=== PATIENT | female | born 1945 | race Hispanic/Latino ===

== ENCOUNTER 2017-09-18 12:04 | Outpatient (CLI) | payer MEDICARE ==
--- NOTE | 2017-09-18 16:38 | Mammography Report ---
BILATERAL DIGITAL SCREENING MAMMOGRAM with CAD: 09/18/17 12:04:00 CLINICAL: Routine screening. COMPARISON: 06/22/16 and 03/12/14 FINDINGS: There are bilateral scattered areas of fibroglandular density.No mass, architectural distortion or suspicious calcifications. IMPRESSION: No mammographic evidence of malignancy. BI-RADS CATEGORY: 1 -- Negative RECOMMENDATION: Routine mammographic screening in one year. COMMENT: Patient follow-up letters are generated by our [employer] application.
== END 2017-09-18 12:05 | disposition home or self-care (01) ==
LOC: SPVWC 12:04
PROVIDERS: ATTEND Obstetrics & Gynecology
DX: Z12.31 Encounter for screening mammogram for malignant neoplasm of breast (principal)
CPT/HCPCS: 77067; G0202

== ENCOUNTER 2019-06-25 10:49 | Outpatient (CLI) | payer MEDICARE ==
--- NOTE | 2019-06-25 12:51 | XRay Report ---
PA AND LATERAL CXR HISTORY: Cough. COMPARISON: None FINDINGS: Cardiomediastinal silhouette: Normal cardiac size. Normal mediastinal contours. Lungs: Normal expansion. Basal reticular interstitial opacities, greater on the left than the right. No pulmonary consolidation. Mild blunting of the costophrenic angles. No pleural effusions. No pne umothorax. Pulmonary vascularity: Normal. Support hardware: None. Additional findings: None. IMPRESSION: Bilateral lower lobe interstitial disease which is most likely chronic and of uncertain etiology. Signer Name: Santos Sheridan MD Signed: 06/25/2019 12:47 PM Workstation Name: [id number]
== END 2019-06-25 10:50 | disposition home or self-care (01) ==
LOC: SPVIMAG 10:49
PROVIDERS: ATTEND Internal Medicine
DX: J84.9 Interstitial pulmonary disease, unspecified (principal)
CPT/HCPCS: 71046

== ENCOUNTER 2020-10-02 10:25 | Outpatient (CLI) | payer MEDICARE ==
--- NOTE | 2020-10-02 14:27 | Mammography Report ---
DIGITAL SCREENING MAMMOGRAM WITH CAD, 10/02/2020 CLINICAL INFORMATION / INDICATION: Routine screening mammography. TECHNIQUE: Digital bilateral 2D mammography was obtained in the craniocaudal and mediolateral obliqu e projections. This examination was interpreted with the benefit of Computer-Aided Detection analysis . COMPARISON: 10/01/2018, 09/18/2017 FINDINGS: Breast Density: There are scattered areas of fibroglandular density. No dominant mass, suspicious calcifications, or architectural distortion in either breast. IMPRESSION: No mammographic evidence of malignancy. Follow up recommendation: Routine yearly BI-RADS Category 1: Negative. A "normal" or negative report should not discourage follow up or biopsy of a clinically significant f inding. A written summary of these findings will be mailed to the patient. The patient will be entered into a mammography reporting system which will generate a reminder letter for the patient's next appointmen t at the appropriate interval. The [employer] recommends yearly mammograms starting at age 40 and continuing as l jacob as a woman is in good health. Breast MRI is recommended for women with an approximate 20-25% or greater lifetime risk of breast cancer, including women with a strong family history of breast or ova pam cancer or who have been treated for Hodgkin's disease. Signer Name: Yosef Noriega MD Signed: 10/02/2020 2:22 PM Workstation Name: [id number]
== END 2020-10-02 10:26 | disposition home or self-care (01) ==
LOC: SPVWC 10:25
PROVIDERS: ATTEND Obstetrics & Gynecology
DX: Z12.31 Encounter for screening mammogram for malignant neoplasm of breast (principal)
CPT/HCPCS: 77067

== ENCOUNTER 2021-01-18 12:59 | Outpatient (CLI) | payer MEDICARE ==
--- NOTE | 2021-01-18 14:03 | XRay Report ---
CHEST 2 VIEWS INDICATION: COUGH. COMPARISON: 06/25/2019 FINDINGS: Support devices: None. Heart: Within normal limits. Lungs/pleura: Bronchovascular markings are prominent particularly in the lower lung zones. Mild honey combing and bronchiectasis is suspected in these areas. These findings appear increased significantly since 2019 exam. No pneumothorax. Additional findings: None. IMPRESSION: Findings suggestive of pulmonary fibrosis which have advanced significantly since 06/25/2019 exam. 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 Signer Name: Nnamdi Oconnor Jr, MD Signed: 01/18/2021 1:58 PM Workstation Name: [id number]
== END 2021-01-18 13:00 | disposition home or self-care (01) ==
LOC: SPVIMAG 12:59
PROVIDERS: ATTEND Internal Medicine
DX: R05 Cough (principal)
CPT/HCPCS: 71046

== ENCOUNTER 2021-03-24 11:44 | Outpatient (CLI) | payer MEDICARE ==
--- NOTE | 2021-03-24 13:57 | XRay Report ---
CHEST 1 VIEW 03/24/2021 12:16 PM INDICATION / CLINICAL INFORMATION: COUGH R05. COMPARISON: 01/18/21. FINDINGS: SUPPORT DEVICES: None. HEART / MEDIASTINUM: The heart size and pulmonary vasculature are normal. LUNGS / PLEURA: Chronic interstitial lung disease is again identified. There is bronchiectasis in bot h lower lung zones, similar to the prior exam. Bibasilar parenchymal disease appears slightly improve d. No pleural effusion. No pneumothorax. ADDITIONAL FINDINGS: No significant additional findings. IMPRESSION: Mild bibasilar parenchymal disease superimposed on chronic interstitial lung disease and bronchiectasis has improved. Signer Name: Marcos Butler MD Signed: 03/24/2021 1:52 PM Workstation Name: [id number]
== END 2021-03-24 11:45 | disposition home or self-care (01) ==
LOC: SPVIMAG 11:44
PROVIDERS: ATTEND Internal Medicine
DX: J47.9 Bronchiectasis, uncomplicated (principal); R91.8 Other nonspecific abnormal finding of lung field
CPT/HCPCS: 71045

== ENCOUNTER 2021-12-21 13:32 | Outpatient (CLI) | payer MEDICARE ==
--- NOTE | 2021-12-22 11:48 | Mammography Report ---
DIGITAL SCREENING MAMMOGRAM WITH CAD, 12/21/2021 CLINICAL INFORMATION / INDICATION: Routine screening mammography. SCREENING MAMMO TECHNIQUE: Digital bilateral 2D mammography was obtained in the craniocaudal and mediolateral obliqu e projections. This examination was interpreted with the benefit of Computer-Aided Detection analysis . COMPARISON: 10/02/2020 and 09/18/2017 FINDINGS: Breast Density: There are scattered areas of fibroglandular density. No dominant mass, suspicious calcifications, or architectural distortion in either breast. IMPRESSION: No mammographic evidence of malignancy. Follow up recommendation: Routine yearly BI-RADS Category 1: NEGATIVE A "normal" or negative report should not discourage follow up or biopsy of a clinically significant f inding. A written summary of these findings will be mailed to the patient. The patient will be entered into a mammography reporting system which will generate a reminder letter for the patient's next appointmen t at the appropriate interval. The [employer] recommends yearly mammograms starting at age 40 and continuing as l jacob as a woman is in good health. Breast MRI is recommended for women with an approximate 20-25% or greater lifetime risk of breast cancer, including women with a strong family history of breast or ova pam cancer or who have been treated for Hodgkin's disease. Signer Name: Fabiano Cates MD Signed: 12/22/2021 10:48 AM Workstation Name: [id number]
== END 2021-12-21 13:33 | disposition home or self-care (01) ==
LOC: SPVWC 13:32
PROVIDERS: ATTEND Obstetrics & Gynecology
DX: Z12.31 Encounter for screening mammogram for malignant neoplasm of breast (principal)
CPT/HCPCS: 77067